=== PATIENT | male | born 1980 | race Hispanic/Latino ===

== ENCOUNTER 2017-04-22 20:56 | Emergency (ER) | payer MEDICAID ==
[2017-04-22 21:08] VITALS: BMI 35.3
[2017-04-22 21:11] VITALS: BP 149/91; PULSE 77; RESP 18; TEMP 98.5; O2SAT 98
--- NOTE | 2017-04-22 22:37 | ED PDOC ---
Arrival/HPI - General Chief Complaint: Bite Time Seen by Provider: 04/22/17 22:06 Historian: Patient - History of Present Illness Narrative History of Present Illness (Text): 04/22/17 22:34 37yr old male presents today with tick on left forearm. pt states that he was camping and states he returned today. pt states earlier today he is positive that he didnt have a tick on his arm. pt states while taking down the camping equipment he thinks he may have come in contact with the tick. pt denies pain. denies fever/chills. no other complaints. Time/Duration: Prior to Arrival Quality: Other (NO PAIN) Past Medical History - Provider Review Nursing Documentation Reviewed: Yes - Travel History Have you recently traveled outside [place] w/in the past 3 mons?: No - Infectious Disease Hx of Infectious Diseases: None - Psychiatric Hx Depression: No Hx Emotional Abuse: No Hx Physical Abuse: No Hx Substance Use: No - Anesthesia Hx Anesthesia: No - Suicidal Assessment Feels Threatened In Home Enviroment: No Family/Social History - Physician Review Nursing Documentation Reviewed: Yes Family/Social History: Unknown Family HX Smoking Status: Never Smoked Hx Alcohol Use: Yes Hx Substance Use: No Hx Substance Use Treatment: No Allergies/Home Meds Allergies/Adverse Reactions: Allergies Sulfa (Sulfonamide Antibiotics) Allergy (Verified 09/12/16 10:33) unknown Home Medications: Home Meds Medication Instructions Recorded Confirmed No Known Home Med 04/22/17 04/22/17 Review of Systems - Review of Systems Constitutional: absent: Fatigue, Fevers ENT: Other (earache). absent: Sinus Congestion Respiratory: absent: SOB, Cough Cardiovascular: absent: Chest Pain, Palpitations Gastrointestinal: absent: Abdominal Pain, Nausea, Vomiting Musculoskeletal: absent: Arthralgias, Back Pain Skin: absent: Rash Neurological: absent: Headache, Dizziness Physical Exam Vital Signs Reviewed: Yes Vital Signs Temp Pulse Resp BP Pulse Ox 04/22/17 21:10 98.5 F 77 18 149/91 H 98 Temperature: Afebrile Blood Pressure: Hypertensive Pulse: Regular Respiratory Rate: Normal Appearance: Positive for: Well-Appearing, Non-Toxic, Comfortable Pain Distress: None Mental Status: Positive for: Alert and Oriented X 3 - Systems Exam Head: Present: Atraumatic Mouth: Present: Moist Mucous Membranes Neck: Present: Normal Range of Motion Respiratory/Chest: Present: Clear to Auscultation, Good Air Exchange. No: Respiratory Distress, Accessory Muscle Use Cardiovascular: Present: Regular Rate and Rhythm, Normal S1, S2. No: Murmurs Upper Extremity: No: Normal Inspection (there is a tick on left forearm; no erythema; no edema. non tender;), Cyanosis, Edema Neurological: Present: GCS=15 Psychiatric: Present: Alert, Oriented x 3 Medical Decision Making ED Course and Treatment: 04/22/17 22:39 37yr old male with tick on left forearm since today. tick completely removed intact with forceps doxycycline 200mg PO given. pt was advised to f/u with pmd for repeat lyme testing at 6 weeks. Patient verbalized full agreement with and understanding of discharge instructions. States that he agrees with the plan and disposition. Verbalized and repeated discharge instructions and plan. I have given the patient opportunity to ask any additional questions. all aspects of this case were discussed the attending of record. Impression: Tick bite Follow-up with primary care physician within the next 2 days You should follow up with the primary care physician and have Lyme testing done in 6 weeks. Return if symptoms worsen or persist or if new concerning symptoms develop - Medication Orders Current Medication Orders: Discontinued Medications Doxycycline Hyclate (Doryx) 200 mg PO STAT STA PRN Reason: Protocol Stop: 04/22/17 22:21 Last Admin: 04/22/17 22:49 Dose: 200 mg Disposition/Present on Arrival - Present on Arrival Any Indicators Present on Arrival: No History of DVT/PE: No History of Uncontrolled Diabetes: No Urinary Catheter: No History of Decub. Ulcer: No History Surgical Site Infection Following: None - Disposition Have Diagnosis and Disposition been Completed?: Yes Diagnosis: Tick bite Disposition: HOME/ ROUTINE Disposition Time: 22:32 Patient Plan: Discharge Condition: GOOD Discharge Instructions (ExitCare): Tick Bite (ED) Additional Instructions: Follow-up with primary care physician within the next 2 days You should follow up with the primary care physician and have Lyme testing done in 6 weeks. Return if symptoms worsen or persist or if new concerning symptoms develop Referrals: Kena Sage DO [Primary Care Provider] - Follow up with primary
== END 2017-04-22 22:51 | disposition home or self-care (01) ==
LOC: ED 20:56
DX: S50.862A Insect bite (nonvenomous) of left forearm, initial encounter (principal); W57.XXXA Bitten or stung by nonvenomous insect and other nonvenomous arthropods, initial encounter; Y92.89 Other specified places as the place of occurrence of the external cause